=== PATIENT | male | born 1990 | race African-American/Black ===

== ENCOUNTER → 2017-03-19 | Outpatient (CLI) | payer OTHER ==
[~2017-03-19] MED LIST: CLEOCIN HCL150 MG PO; PRILOSEC 20 MG20 MG PO; RIFAMPIN 300 M300 M1 PO; ULTRAM 50MG TAB50 MG PO
== END ==
LOC: RAD 15:06
DX: L40.0 Psoriasis vulgaris (principal); Z79.899 Other long term (current) drug therapy